=== PATIENT | male | born 1950 ===

== ENCOUNTER 2016-09-16 07:39 | Day surgery (SDC) | payer MEDICARE, MEDICAID ==
[2016-09-09 14:24] VITALS: BMI 26.9
[2016-09-16 08:50] LABS: INR 0.9; PROTHROMBIN TIME 10.3 SECONDS (9.7-12.2)
[2016-09-16] MEDS ORDERED: Ciprofloxacin 400mg/200ml D5W 400 MG/200 ML BAG IVPB ONE (09:05)
[2016-09-16] MEDS ORDERED: Lidocaine 2% Jelly (Uro-Jet) ONE (09:06)
[2016-09-16] MEDS ORDERED: Propofol 10 mg/ml Inj (20 ML) ONE (09:12)
[2016-09-16] MEDS ORDERED: Midazolam 2 MG/2 ML VIAL ONE (09:12)
[2016-09-16] MEDS ORDERED: Etomidate 20 mg/10ml Inj IV ONE ×2 (09:35→09:40)
[2016-09-16] MEDS ORDERED: Lactated Ringer's 1,000 ML IV ONE (09:35)
[2016-09-16] MEDS: Gentamicin 160 MG in Sodium Chloride 0.9% 100 ML IVPB ONE ×2 (09:45→10:10)
--- NOTE | 2016-09-16 10:04 | PCM.SURG1 ---
Surgeon's Initial Post Op Note - Surgeon's Notes Surgeon: Boris Rangeland Management Specialist: N/A Type of Anesthesia: General LMA Anesthesia Administered By: staff Pre-Operative Diagnosis: Hematuria/Hx high grade BT post chemo Operative Findings: Two large tumors Post-Operative Diagnosis: BT Operation Performed: Cysto Bx fulguration Specimen/Specimens Removed: bt bx Estimated Blood Loss: EBL {In ML}: 0 Blood Products Given: N/A Drains Used: No Drains Post-Op Condition: Good Date of Surgery/Procedure: 09/16/16 Time of Surgery/Procedure: 10:03
[2016-09-16] MEDS ORDERED: HYDROmorphone 0.5 mg/0.5 ml ISec IVP PRN (10:12)
[2016-09-16 11:57] VITALS: RESP 18
[2016-09-16 12:36] VITALS: BP 124/74; PULSE 62; TEMP 98; O2SAT 99
--- NOTE | 2016-09-16 21:44 | OP ---
PROCEDURE DATE: 09/06/2016 PREOPERATIVE DIAGNOSIS: Hematuria, post-chemotherapy for invasive bladder cancer. POSTOPERATIVE DIAGNOSIS: Evidence of persistent and recurrent tumor. PROCEDURE: Cystoscopic biopsy and fulguration. SURGEON: Kenn Escalante MD DESCRIPTION OF PROCEDURE: The patient was draped and prepped in the usual manner after receiving prophylactic antibiotics and signing a detailed informed consent. He was brought in for the room and draped and prepped in the usual manner. His pacemaker was deactivated and the patient was cystoscope #21 scope. normal. The prostatic urethra showed minimal trilobar hypertrophy. The bladder was entered atraumatically. There were 2 large necrotic masses on the left and right side of the bladder obscuring ureteral orifices. These appeared to be recurrent or persistent bladder tumor. The left one was biopsied several times and the area was fulgurated. Pathology specimen was drawn for further therapy to this patient, most likely will need cystectomy since he failed chemotherapy for this invasive tumor. Kenn Escalante MD
== END 2016-09-16 12:35 | disposition home or self-care (01) ==
LOC: C.SDS 07:39
PROVIDERS: ATTEND Urology
DX: C67.9 Malignant neoplasm of bladder, unspecified (principal); N36.8 Other specified disorders of urethra
CPT/HCPCS: 36415; 52204; 85610; 85730; 88305; J0744; J1580; J7120